=== PATIENT | female | born 1930 | race Caucasian/White ===

== ENCOUNTER 2016-10-15 01:12 | Emergency (ER) | payer MEDICARE, OTHER ==
[~2016-10-15 01:12] MED LIST: ACET500CAP PO; HCTZ25B PO; L20 PO; LEVOTHROID137 MCG PO; LOTE20 PO
== END 2016-10-15 02:10 | disposition home or self-care (01) ==
LOC: ER 01:12
DX: T78.3XXA Angioneurotic edema, initial encounter (principal); K12.0 Recurrent oral aphthae; Z79.899 Other long term (current) drug therapy
CPT/HCPCS: 96372; 99283; A9270-GY